=== PATIENT | male | born 1935 | race Caucasian/White ===

== ENCOUNTER 2017-04-13 09:17 | Emergency (ER) | payer MEDICARE, BC | END 2017-04-13 10:58 | disposition home or self-care (01) | LOC: D.ER 09:17 | DX: B35.6 Tinea cruris (principal); E11.9 Type 2 diabetes mellitus without complications; I10 Essential (primary) hypertension ==

== ENCOUNTER 2017-07-19 16:18 | Emergency (ER) | payer MEDICARE, BC ==
[2017-07-19 16:50] LABS: BASOPHILS 0.2 % (0-2); EOSINOPHILS 1.7 % (0-7); HEMATOCRIT 43.6 % (42.0-54.0); HEMOGLOBIN 14.7 g/dL (13.5-17.5); IMMATURE GRANULOCYTES 0.3 % (0-5); LYMPHOCYTES 14.1 % (15-50); MCH 28.8 pg (26.0-34.0); MCHC 33.7 g/dL (31.0-37.0); MCV 85.3 fL (80.0-100.0); MEAN PLATELET VOLUME 10.1 fL (7.4-10.4); MONOCYTES 7.2 % (2-11); NEUTROPHILS 76.5 % (40-80); PLATELET COUNT 191 10x3/uL (130-400); RBC 5.11 10x6/uL (4.20-6.10); RDW 13.7 % (11.5-14.5); WBC 9.9 10x3/uL (4.8-10.8)
[2017-07-19 17:33] LABS: APTT 29.7 SECONDS (22.8-39.4); INR 1.06 (0.85-1.17); PROTIME 13.4 SECONDS (11.6-15.0)
[2017-07-19 17:42] LABS: ALBUMIN 3.6 g/dL (3.4-5.0); ANION GAP 12.6 mmol/L (8-16); BILIRUBIN - TOTAL 0.71 mg/dL (0.2-1.3); CALCIUM 9.1 mg/dL (8.5-10.1); CARBON DIOXIDE 29.8 mmol/L (21.0-32.0); CREATININE - SERUM 1.3 mg/dL (0.6-1.3); POTASSIUM - SERUM 3.4 mmol/L (3.5-5.1); PROTEIN - SERUM 7.1 g/dL (6.4-8.2)
== END 2017-07-19 21:23 | disposition home or self-care (01) ==
LOC: D.ER 16:18
PROVIDERS: Family Medicine; Physician Assistant Medical
DX: R55 Syncope and collapse (principal); S02.2XXA Fracture of nasal bones, initial encounter for closed fracture; S02.40CA Maxillary fracture, right side, initial encounter for closed fracture; W19.XXXA Unspecified fall, initial encounter; Y93.89 Activity, other specified; Y92.019 Unspecified place in single-family (private) house as the place of occurrence of the external cause; E11.9 Type 2 diabetes mellitus without complications; I10 Essential (primary) hypertension; I44.4 Left anterior fascicular block

== ENCOUNTER 2017-07-21 08:31 | Emergency (ER) | payer MEDICARE, BC ==
[2017-07-21 09:10] LABS: BASOPHILS 0.2 % (0-2); EOSINOPHILS 1.1 % (0-7); HEMATOCRIT 38.3 % (42.0-54.0); HEMOGLOBIN 12.5 g/dL (13.5-17.5); IMMATURE GRANULOCYTES 0.1 % (0-5); LYMPHOCYTES 15.3 % (15-50); MCH 28.4 pg (26.0-34.0); MCHC 32.6 g/dL (31.0-37.0); MEAN PLATELET VOLUME 9.9 fL (7.4-10.4); MONOCYTES 9.8 % (2-11); NEUTROPHILS 73.5 % (40-80); PLATELET COUNT 175 10x3/uL (130-400); RDW 13.7 % (11.5-14.5); WBC 10.4 10x3/uL (4.8-10.8)
[2017-07-21 09:20] LABS: INR 1.08 (0.85-1.17); PROTIME 13.6 SECONDS (11.6-15.0)
[2017-07-21 09:21] LABS: APTT 31.3 SECONDS (22.8-39.4)
[2017-07-21 09:22] LABS: D-DIMER-QUANTITATIVE 1.92 ug/mLFEU (0.20-0.54)
[2017-07-21 09:44] LABS: ALBUMIN 3.3 g/dL (3.4-5.0); ALKALINE PHOSPHATASE 86 U/L (46-116); BILIRUBIN - TOTAL 0.87 mg/dL (0.2-1.3); CALC OSMOLALITY 277 mosm/kg (275-300); CALCIUM 8.5 mg/dL (8.5-10.1); CARBON DIOXIDE 32.1 mmol/L (21.0-32.0); CHLORIDE - SERUM 94 mmol/L (98-107); CREATININE - SERUM 1.4 mg/dL (0.6-1.3); GLUCOSE 195 mg/dL (74-106); POTASSIUM - SERUM 3.2 mmol/L (3.5-5.1); SODIUM 134 mmol/L (136-145); UREA NITROGEN 27 mg/dL (7-18); eGFR NON AFRICAN AMERICAN 51 mL/min (90-120)
[2017-07-21 09:47] LABS: ALT (SGPT) 23 U/L (10-68)
[2017-07-21 10:09] LABS: CKMB 0.3 U/L (0.0-3.6); CREATINE KINASE 571 UL (21-232)
[2017-07-21 10:10] LABS: TROPONIN-I < 0.017 ng/mL (0.000-0.060)
== END 2017-07-21 16:42 | disposition home or self-care (01) ==
LOC: D.ER 08:31
PROVIDERS: Family Medicine
DX: I63.9 Cerebral infarction, unspecified (principal); E11.9 Type 2 diabetes mellitus without complications; I10 Essential (primary) hypertension; I45.10 Unspecified right bundle-branch block; I44.4 Left anterior fascicular block

== ENCOUNTER 2017-11-03 15:19 | Inpatient (IN) | payer MEDICARE, BC ==
[~2017-11-03] VITALS: Ht 180.3 cm; Wt 97.5 kg
[2017-11-03] MEDS ORDERED: GLIMEPIRIDE2 MG PO (15:29)
[2017-11-03 15:30] VITALS: BP 124/81
[2017-11-03] MEDS ORDERED: CHLORTHALIDONE25 MG PO (15:30)
[2017-11-03] MEDS ORDERED: COREG12.5 MG PO (15:30)
[2017-11-03] MEDS ORDERED: PRINIVIL20 MG PO (15:30)
[2017-11-03] MEDS ORDERED: HYTRIN10 MG PO (15:31)
[2017-11-03] MEDS ORDERED: LIPITOR40 MG PO (15:31)
[2017-11-03] MEDS ORDERED: KLOR-CON M2020 MEQ PO (15:32)
[2017-11-03 16:00] VITALS: BP 130/76
[2017-11-03 16:43] LABS: BASOPHILS 0.1 % (0-2); EOSINOPHILS 0 % (0-7); HEMATOCRIT 33.9 % (42.0-54.0); HEMOGLOBIN 11.1 g/dL (13.5-17.5); IMMATURE GRANULOCYTES 0.2 % (0-5); LYMPHOCYTES 7.2 % (15-50); MCH 27.5 pg (26.0-34.0); MCHC 32.7 g/dL (31.0-37.0); MCV 84.1 fL (80.0-100.0); MONOCYTES 4.9 % (2-11); NEUTROPHILS 87.6 % (40-80); PLATELET COUNT 193 10x3/uL (130-400); RBC 4.03 10x6/uL (4.20-6.10); RDW 14.3 % (11.5-14.5); WBC 11.7 10x3/uL (4.8-10.8)
[2017-11-03 16:58] LABS: APTT 28.1 SECONDS (22.8-39.4); INR 1.16 (0.85-1.17); PROTIME 14.4 SECONDS (11.6-15.0)
[2017-11-03 17:00] VITALS: BP 124/77
[2017-11-03 17:02] LABS: ALKALINE PHOSPHATASE 74 U/L (46-116); ALT (SGPT) 18 U/L (10-68); BILIRUBIN - TOTAL 0.54 mg/dL (0.2-1.3); CALC OSMOLALITY 306 mosm/kg (275-300); CARBON DIOXIDE 30.1 mmol/L (21.0-32.0); CHLORIDE - SERUM 102 mmol/L (98-107); CREATININE - SERUM 1.4 mg/dL (0.6-1.3); PROTEIN - SERUM 6.4 g/dL (6.4-8.2); SODIUM 142 mmol/L (136-145); UREA NITROGEN 55 mg/dL (7-18); eGFR NON AFRICAN AMERICAN 51 mL/min (90-120)
[2017-11-03 17:07] LABS: GLUCOSE 260 mg/dL (74-106)
[2017-11-03 17:16] LABS: CKMB 1.1 U/L (0.0-3.6); CREATINE KINASE 64 UL (21-232); TROPONIN-I 0.028 ng/mL (0.000-0.060)
[2017-11-03 18:01] VITALS: BP 118/59
[2017-11-04] VITALS: BP 117/60
[2017-11-04 00:42] VITALS: BP 117/60
[2017-11-04 04:00] VITALS: BP 144/71
[2017-11-04 08:58] VITALS: BP 140/65
[2017-11-04 14:34] VITALS: BMI 29.9
[2017-11-04 15:19] VITALS: Ht 180.3 cm; Wt 97.5 kg
[2017-11-04 16:06] VITALS: BP 132/68
[2017-11-04 17:29] LABS: HEMATOCRIT 30.1 % (42.0-54.0); HEMOGLOBIN 9.7 g/dL (13.5-17.5)
[2017-11-04 20:00] VITALS: BP 146/67
[2017-11-05] VITALS: BP 151/84
[2017-11-05 01:27] LABS: HEMATOCRIT 28.7 % (42.0-54.0); HEMOGLOBIN 9.5 g/dL (13.5-17.5)
[2017-11-05 04:00] VITALS: BP 145/70
[2017-11-05 04:56] LABS: BASOPHILS 0.2 % (0-2); HEMATOCRIT 30.8 % (42.0-54.0); IMMATURE GRANULOCYTES 0.4 % (0-5); MCH 27.6 pg (26.0-34.0); MCHC 32.5 g/dL (31.0-37.0); MCV 85.1 fL (80.0-100.0); MEAN PLATELET VOLUME 9.8 fL (7.4-10.4); MONOCYTES 5.6 % (2-11); NEUTROPHILS 82.8 % (40-80); PLATELET COUNT 195 10x3/uL (130-400); RBC 3.62 10x6/uL (4.20-6.10); RDW 14.5 % (11.5-14.5); WBC 11.1 10x3/uL (4.8-10.8)
[2017-11-05 05:07] LABS: ANION GAP 10.6 mmol/L (8-16); CALCIUM 8.6 mg/dL (8.5-10.1); CARBON DIOXIDE 31.9 mmol/L (21.0-32.0); CREATININE - SERUM 1.1 mg/dL (0.6-1.3)
[2017-11-05 05:09] LABS: POTASSIUM - SERUM 2.5 mmol/L (3.5-5.1)
[2017-11-05 08:16] LABS: HEMATOCRIT 30.3 % (42.0-54.0); HEMOGLOBIN 9.9 g/dL (13.5-17.5)
[2017-11-05 10:22] VITALS: BP 168/84
[2017-11-05 16:14] VITALS: BP 170/81
[2017-11-05 22:54] VITALS: BP 155/63
[2017-11-06 05:00] VITALS: BP 139/69
[2017-11-06 07:59] LABS: BASOPHILS 0.3 % (0-2); EOSINOPHILS 2.5 % (0-7); HEMATOCRIT 29.5 % (42.0-54.0); HEMOGLOBIN 9.4 g/dL (13.5-17.5); IMMATURE GRANULOCYTES 0.3 % (0-5); MCH 27.2 pg (26.0-34.0); MCHC 31.9 g/dL (31.0-37.0); MCV 85.5 fL (80.0-100.0); MEAN PLATELET VOLUME 9.5 fL (7.4-10.4); MONOCYTES 7.1 % (2-11); NEUTROPHILS 68.8 % (40-80); PLATELET COUNT 175 10x3/uL (130-400); RBC 3.45 10x6/uL (4.20-6.10); RDW 14.9 % (11.5-14.5)
[2017-11-06 08:04] LABS: WBC 7.3 10x3/uL (4.8-10.8)
[2017-11-06 08:21] LABS: ANION GAP 8.4 mmol/L (8-16); CALCIUM 8.1 mg/dL (8.5-10.1); CARBON DIOXIDE 31.9 mmol/L (21.0-32.0); CREATININE - SERUM 1.1 mg/dL (0.6-1.3); POTASSIUM - SERUM 3.3 mmol/L (3.5-5.1)
[2017-11-06 08:38] VITALS: BP 168/90
[2017-11-06 12:09] VITALS: BP 151/70
[2017-11-06] MEDS ORDERED: FLAGYL500 MG PO (12:12)
[2017-11-06] MEDS ORDERED: LEVAQUIN750 MG PO (12:12)
[2017-11-06] MEDS ORDERED: CARAFATE1 G PO (12:13)
[2017-11-06] MEDS ORDERED: PROTONIX40 MG PO (12:13)
== END 2017-11-06 15:16 | disposition home or self-care (01) | DRG 378 ==
LOC: D.ER 15:19 → D.EDHOLD 18:55 → D.MS 18:55
PROVIDERS: Family Medicine; Internal Medicine Gastroenterology; Internal Medicine Nephrology
DX: K57.33 Diverticulitis of large intestine without perforation or abscess with bleeding (principal); D62 Acute posthemorrhagic anemia; N17.9 Acute kidney failure, unspecified; I10 Essential (primary) hypertension; E11.9 Type 2 diabetes mellitus without complications; R07.9 Chest pain, unspecified; I25.10 Atherosclerotic heart disease of native coronary artery without angina pectoris; E87.6 Hypokalemia; Z87.891 Personal history of nicotine dependence